=== PATIENT | male | born 1985 | race Caucasian/White ===

== ENCOUNTER → 2019-09-24 | Outpatient (CLI) | payer BC ==
--- NOTE | 2019-09-24 15:08 | MR ---
EXAMINATION TYPE: MR knee RT wo con DATE OF EXAM: 09/24/2019 COMPARISON: None HISTORY: Right Knee Pain, Swelling, Locking TECHNIQUE: Multiplanar, multisequence images of the knee is performed without IV contrast. FINDINGS: MEDIAL MENISCUS: Oblique tear posterior horn medial meniscus. Bucket-handle component is difficult to exclude. Anterior horn is intact. LATERAL MENISCUS: Anterior and posterior horns are intact without tear. CRUCIATE LIGAMENTS: The anterior and posterior cruciate ligaments are intact and unremarkable. COLLATERAL LIGAMENTS: The medial collateral ligament and lateral collateral ligament complex are inta ct and unremarkable. EXTENSOR MECHANISM: Visualized quadriceps and patellar tendons are intact. EFFUSION: No significant suprapatellar joint effusion. POPLITEAL CYST: No popliteal/dixon cyst. TRICOMPARTMENT SPACES: Intact CARTILAGE: Intact BONE MARROW SIGNAL: No focal abnormal marrow signal is appreciated. OTHER: No additional significant abnormality is appreciated. IMPRESSION: Oblique tear posterior horn medial meniscus. Bucket-handle component is difficult to excl ude.
== END | disposition home or self-care (01) ==
LOC: RADMRIMAIN 14:03
PROVIDERS: ATTEND Orthopaedic Surgery
DX: S83.241A Other tear of medial meniscus, current injury, right knee, initial encounter (principal)

== ENCOUNTER → 2019-10-05 | Outpatient (CLI) | payer BC ==
[2019-10-05 13:29] LABS: Basophils % (A) 1 %; Eosinophils # (A) 0.3 k/uL (0-0.7); Eosinophils % (A) 4 %; HCT 46.4 % (39.0-53.0); HGB 15.3 gm/dL (13.0-17.5); Lymphocytes # (A) 2.9 k/uL (1.0-4.8); Lymphocytes % (A) 39 %; MCH 31.2 pg (25.0-35.0); MCV 94.6 fL (80.0-100.0); Mean Platelet Volume 7.8; Monocytes # (A) 0.3 k/uL (0-1.0); Monocytes % (A) 4 %; Neutrophils # (A) 3.8 k/uL (1.3-7.7); Neutrophils % (A) 51 %; Platelet Count 224 k/uL (150-450); RDW 12.8 % (11.5-15.5); WBC 7.5 k/uL (3.8-10.6)
[2019-10-05 13:31] LABS: Potassium 4.2 mmol/L (3.5-5.1)
== END | disposition home or self-care (01) ==
LOC: LABPAT 12:35
PROVIDERS: ATTEND Orthopaedic Surgery
DX: Z01.818 Encounter for other preprocedural examination (principal); M23.91 Unspecified internal derangement of right knee
CPT/HCPCS: 80051; 85025

== ENCOUNTER → 2019-10-20 | Day surgery (SDC) | payer BC ==
[2019-10-18 11:55] VITALS: BMI 30.8
--- NOTE | 2019-10-19 16:40 | HP ---
HISTORY AND PHYSICAL DATE OF SURGERY: 10/20/2019 Guillermo Chan is a 34-year-old patient seen progressive right knee pain. We discussed options. He elected to proceed with arthroscopy. Consent was obtained. PAST MEDICAL HISTORY: Noncontributory. PAST SURGICAL HISTORY: Noncontributory. DAILY MEDICATIONS: Naprosyn. ALLERGIES: NONE. SOCIAL HISTORY: He smokes one pack of cigarettes daily. PHYSICAL EVALUATION OF THE RIGHT KNEE: His range of motion is negative 2/3 to 110. He has a mild to moderate effusion. Tenderness along medial joint line. Positive medial Amanda's. Plus one Lori. Good endpoint. Plus one MCL, good endpoint. Distal neurovascular exam is intact. RADIOGRAPHS: Radiographs of the right knee revealed mild osteoarthritis. Right knee MRI revealed medial meniscal tear. IMPRESSION: 1. Internal derangement of the right knee with medial meniscal tear. 2. Tobacco use. PLAN: Right knee arthroscopy with partial meniscectomy, partial synovectomy and debridement. MMODL / IJN: [id number] /
[~2019-10-20] MED LIST: BUPIVACAIN-EPI 0.25%-1:200,000 30 ML VIAL SQ ONE; DEXAMETHASONE SOD PHOSPHATE 10 MG/ML 1 ML VIAL IV ONE; HYDROcodone/APAP 5-325MG 1 EACH TAB ONE; HYDROcodone/APAP 5-325MG 1 EACH TAB PO ONE; HYDROcodone/APAP 7.5-325MG 1 EACH TAB ONE; LACTATED RINGERS 1,000 ML IV SCH; LIDOCAINE 1% (10MG/ML) FOR IV START INTRADERMA ONE; LIDOCAINE 1% INJ 10MG/ML (20 ML MDV) ONE; MIDAZOLAM 2 MG/2 ML VIAL ONE; ONDANSETRON 4 MG/2 ML VIAL IVP ONE; ONDANSETRON 4 MG/2 ML VIAL ONE; PROPOFOL 10 MG/ML 20 ML VIAL IV ONE; fentaNYL (PF) 50 MCG/ML 2 ML AMP ONE
[2019-10-20 08:56] VITALS: RESP 16
[2019-10-20] MEDS: HYDROmorphone 0.5 MG/0.5 ML SYRINGE IVP PRN ×4 (10:55→11:28)
--- NOTE | 2019-10-20 11:00 | P.OP ---
Date of Procedure: 10/20/19 Preoperative Diagnosis: Internal derangement right knee Postoperative Diagnosis: 1. Bucket handle tear medial meniscus right knee 2. Reactive synovitis medial, lateral and suprapatellar compartments right knee Procedure(s) Performed: 1. Arthroscopic partial medial meniscectomy right knee 2. Arthroscopic partial synovectomy medial, lateral and suprapatellar compartments right knee Anesthesia: LIZZETTEA, local Surgeon: Goyo Brown Estimated Blood Loss (ml): 7 Pathology: none sent Condition: stable Disposition: PACU Indications for Procedure: 34-year-old patient seen with progressive right knee pain. After treatment options were discussed, he elected to proceed with arthroscopy. Operative Findings: See description of procedure Description of Procedure: Patient was taken to the operative suite. Patient underwent a general anesthetic by the department of anesthesia. Patient was given preoperative antibiotics. The right lower extremity was placed in a well-padded arthroscopic leg coleman. The right leg was prepped and draped in the normal sterile orthopedic fashion. A lateral parapatellar and suprapatellar incision was made. Trochars were inserted. Arthroscopy was initiated. Suprapatellar pouch reveal ed diffuse thick reactive synovitis. The patellofemoral joint appeared to articulate congruently. There was no significant chondromalacia present. The scope was guided into the medial gutter. No loose bodies or plica were identified. The scope was then guided into the medial compartment. A medial parapatellar incision was made. Trocar inserted followed by probe. There was a white zone bucket-handle tear involving the medial meniscus. There was thick reactive synovitis anteriorly. There wasa chondral malacia. I now performed a partial medial meniscectomy getting down to stable meniscal tissue. I performed a partial synovectomy. The residual remnant meniscus was stable. There was good decompression of the synovitis. Scope and probe were then guided into the intercondylar notch. Cruciates were identified, probed and found to be stable. The scope and probe were then guided into lateral compartment. Lateral meniscus was probed and found to be stable. There was no chondromalacia. There was some reactive synovitis anteriorly. I performed a partial synovectomy. There was good decompression of the synovitis. The scope was in guided back into the suprapatellar compartment. I introduced a motorized shaver into the suprapatellar compartment. I debrided some piecemeal fragments of meniscus I encountered. I performed a partial synovectomy decompressing reactive syno vitis. The shaver was removed. There was good decompression of synovitis. I took one more look on the entire knee, no residual debris. Instruments were now removed from the joint. The joint was infiltrated with .25% Marcaine. The portal sites were repaired with nylon suture.. Sterile dressings were applied. The patient was placed into a NEVAEH hose. No tourniquet was utilized. The patient was awakened, transferred to a bed and taken to recovery stable satisfactory condition.
[2019-10-20 11:07] VITALS: TEMP 97
[2019-10-20 12:20] VITALS: BP 118/74; PULSE 89
== END | disposition home or self-care (01) ==
LOC: OR 08:32
PROVIDERS: ATTEND Orthopaedic Surgery
DX: M23.331 Other meniscus derangements, other medial meniscus, right knee (principal); M65.861 Other synovitis and tenosynovitis, right lower leg; F17.210 Nicotine dependence, cigarettes, uncomplicated; K08.409 Partial loss of teeth, unspecified cause, unspecified class; Z79.1 Long term (current) use of non-steroidal anti-inflammatories (NSAID); Z97.2 Presence of dental prosthetic device (complete) (partial)
CPT/HCPCS: 29881; 29876; J2250; J1100; J0690; J2405; J2001; J3010; J2704; J1170

== ENCOUNTER → 2022-07-24 | Outpatient (CLI) | payer OTHER ==
--- NOTE | 2022-07-25 09:26 | MR ---
EXAMINATION TYPE: MR knee LT wo con DATE OF EXAM: 07/24/2022 COMPARISON: Outside left knee x-ray 8 days ago HISTORY: Pain Lt knee- medial and under patella. Locking and swelling. History of injury. TECHNIQUE: Multiplanar, multisequence images of the knee is performed without IV contrast. FINDINGS: MEDIAL MENISCUS: Oblique signal posterior horn extends to articular surface sagittal image 27. LATERAL MENISCUS: Anterior and posterior horns are intact without tear. CRUCIATE LIGAMENTS: The anterior and posterior cruciate ligaments are intact and unremarkable. COLLATERAL LIGAMENTS: The medial collateral ligament and lateral collateral ligament complex are inta ct and unremarkable. EXTENSOR MECHANISM: Visualized quadriceps and patellar tendons are intact. EFFUSION: Moderate size suprapatellar joint effusion. POPLITEAL CYST: No popliteal/dixon cyst. TRICOMPARTMENT SPACES: Tricompartmental joint spaces are preserved. No significant spurring is seen. CARTILAGE: Tricompartment articular cartilage is maintained. BONE MARROW SIGNAL: No focal abnormal marrow signal is appreciated. OTHER: No additional significant abnormality is appreciated. IMPRESSION: 1. Oblique full-thickness tear posterior horn medial meniscus extending into central body. 2. Moderate-sized suprapatellar joint effusion.
== END | disposition home or self-care (01) ==
LOC: RADMRIMAIN 19:18
PROVIDERS: ATTEND Orthopaedic Surgery
DX: S83.242A Other tear of medial meniscus, current injury, left knee, initial encounter (principal); M25.462 Effusion, left knee

== ENCOUNTER → 2022-09-06 | Outpatient (CLI) | payer OTHER ==
[2022-09-06 21:43] LABS: Basophils # (A) 0.07 X 10*3/uL (0.00-0.10); Basophils % (A) 0.8 %; Eosinophils # (A) 0.17 X 10*3/uL (0.04-0.35); Eosinophils % (A) 1.9 %; HCT 51.1 % (39.6-50.0); HGB 16.9 d/dL (12.0-15.0); Lymphocytes # (A) 2.67 X 10*3/uL (0.90-5.00); Lymphocytes % (A) 30.5 %; MCH 31.3 pg (27.0-32.0); MCHC 33.1 d/dL (32.0-37.0); MCV 94.6 FL (80.0-97.0); Mean Platelet Volume 10.1 FL (9.5-12.2); Monocytes # (A) 0.46 X 10*3/uL (0.20-1.00); Monocytes % (A) 5.3 %; NRBC Per 100 WBC 0 X 10*3/uL (0.00-0.01); Neutrophils # (A) 5.37 X 10*3/uL (1.80-7.70); Neutrophils % (A) 61.3 %; Platelet Count 254 X 10*3/uL (140-440); RDW 13.1 % (11.5-14.5); WBC 8.76 X 10*3/uL (4.50-10.00)
[2022-09-07 02:36] LABS: Anion Gap 10.7 mmol/L (4.00-12.00); Carbon Dioxide 24.3 mmol/L (21.6-31.8); Potassium 4.2 mmol/L (3.5-5.5)
== END | disposition home or self-care (01) ==
LOC: LABPAT 11:07
PROVIDERS: ATTEND Orthopaedic Surgery
DX: M23.92 Unspecified internal derangement of left knee (principal)
CPT/HCPCS: 80051; 85025; 93005

== ENCOUNTER 2022-09-08 19:25 | Outpatient (CLI) | payer OTHER ==
[2022-09-09 18:36] LABS: Urine Alcohol Negative (Negative); Urine Barbiturate Negative (Negative); Urine Cocaine Negative (Negative); Urine Methadone Negative (Negative); Urine Opiates Negative (Negative); Urine Phencyclidine Negative (Negative)
--- NOTE | 2022-09-24 16:13 | P.PCN ---
Date of Procedure: 09/08/22 Operative Findings: Polysomnography report Date of service is 09/08/2022 Pertinent history 35-year-old male patient with symptoms of chronic sleepiness and hypersomnia -patient has loud snoring, witnessed apneas as reported by the and episodes of gasping for air in the middle of the night during sleep. -Fragmentation of the sleep -Excessive hypersomnia with an [place] score of 16 -Limited weight gain over the years in order of 20 pounds - Crowding of the posterior pharynx with a Mallampati class 3-4 Technical description The patient was studied using a standard complex polysomnography protocol that included recording of the 2 EKG, Central, occipital and frontal EEG, right and left outer canthus EOG, submental EMG, right and left anterior tibialis EMG, respiratory airflow by thermocouple and or pressure/flow transducer, respiratory efforts by abdominal and thoracic PVDF belts, oxygen saturation by cable oximetry. Position by observation synchronized the PSG. 4 children 12 and nontender and select patients, ETCO2 may be added to the recording. Equipment us ed: [email or web address]. Sleep architecture The study began at 2155 and ended at 534. Total recording duration was 4 and 58.5 minutes. The total time to sleep was 281.5 minutes. The wake time after sleep onset was 24 minutes. The overall sleep efficiency was Related to be at 83.2%. The patient's sleep latency was 51 minutes. There was a total of 21% REM sleep with a REM latency of 184 minutes. There was 3.3% stage I sleep, 73.0% stage II sleep, 2.6% stage III sleep and the total arousal index was 8.7. Sleep continuity The patient had total of 55 arousals with arousal index of 8.7 Respiratory summary during the current sleep study, the patient had a total of 4 obstructive apneas, 7 obstructive hypopneas and the resulting apnea hypopneas index was 1.7. Oxygenation analysis The patient had no major nocturnal oxygen saturation and the patient was able to maintain a pulse ox above 90% on sleep study Cardiac summary The average heart rate was 56, minimum heart rate was 51 and a maximum heart is a 63 and the rhythm was sinus Periodic limb movements activity The patient had a total of 15. The motor activity with an index of 2.4. There was only 7 periodic limb movements activity with arousal and index of 1.1 Assessment Primary snoring, no evidence of any sleep breathing disorder. The apnea hypopneas was measured to be at 1.7 Chronic hypersomnia with an [place] score of 16 Plan This is a negative study. The patient had adequate sleep efficiency. Adequate sleep architecture. No early REM sleep. The overall apnea hypoxia index was 1.7. Proceed with secondary MSLT. MSLT report Electrographic variables measured during MSLT included EEG, EMG, EOG and EKG. The patient was monitored throughout 4/5 20 minute naps/unfortunately is to follow sleep at 2 hour intervals. For each nap, the patient was allowed 20 minutes to fall asleep. Once asleep, the patient is awake and after 15 minutes. Between naps, the patient was Alert as much as possible. The sleep latency of 20 minutes indicates that no sleep occurred. Results The patient was given a total of 5 naps. Patient complains of knee pain and he left AMA before the fifth nap. The sleep latency for nap #1 was 4 minutes, nap #2 was 6 minutes, nap #3 was 13 minutes and nap #4 was 20 minutes. The mean sleep latency or 4 naps was 10.7 minutes. There was no REM episodes or REM onset sleep during these naps. Assessment Chronic hypersomnia, likely related to insufficient sleep. Possibility of primary hepatic hypersomnia cannot be completely ruled out. No evidence of any narcolepsy. No evidence of any REM onset sleep. Plan We will ask the patient to extend his sleeping hours and average of 8-9 hours per night if possible. Maintain regular sleep schedule implement good sleep hygiene measures We'll consider treating this patient with Provigil as the patient is reporting excessive sleepiness and is affecting his functionality. Anticipate improvement in his chronic hypersomnia with above-mentioned measures. Will ask patient to follow-up in the office We'll continue to follow
== END 2022-09-09 23:59 ==
LOC: 3 N SLEEP 19:25 → EDSTATUS 19:30 → 3 N SLEEP 09-09 14:30
PROVIDERS: ATTEND Internal Medicine Critical Care Medicine
DX: G47.10 Hypersomnia, unspecified (principal)
CPT/HCPCS: 80306; 95805; 95810

== ENCOUNTER 2022-10-03 12:18 | Day surgery (SDC) | payer OTHER ==
--- NOTE | 2022-10-03 07:51 | HP ---
HISTORY AND PHYSICAL DATE OF SURGERY: 10/03/2022. HISTORY OF PRESENT ILLNESS: Lucho Chan is a 37-year-old gentleman, seen with progressive left knee pain. We discussed options. He elected to proceed with left knee arthroscopy. Consent was obtained. PAST MEDICAL HISTORY: Noncontributory. PAST SURGICAL HISTORY: Noncontributory. DAILY MEDICATIONS: None. ALLERGIES: None reported. SOCIAL HISTORY: Smokes 1 pack of cigarettes daily. PHYSICAL EVALUATION OF THE LEFT KNEE: His range of motion is -3/4 to 95 degrees. Mild effusion. Tenderness along the medial joint line. Positive medial Amanda's. Ligaments are stable. Hip rotation is without pain. Distal neurovascular exam is intact. IMAGING STUDIES: Left knee radiographs revealed mild osteoarthritis. Left knee MRI revealed medial meniscal tear and moderate intra-articular effusion. IMPRESSION: Internal derangement of left knee with medial meniscal tear. PLAN: Left knee arthroscopy with partial medial meniscectomy and debridement. MMODL / IJN: [id number] /
[~2022-10-03 12:18] MED LIST changes: -BUPIVACAIN-EPI 0.25%-1:200,000 30 ML VIAL SQ ONE; -DEXAMETHASONE SOD PHOSPHATE 10 MG/ML 1 ML VIAL IV ONE; +DEXAMETHASONE SOD PHOSPHATE 4 MG/ML 1 ML VIAL IV ONE; -HYDROcodone/APAP 5-325MG 1 EACH TAB ONE; -HYDROcodone/APAP 5-325MG 1 EACH TAB PO ONE; -HYDROcodone/APAP 7.5-325MG 1 EACH TAB ONE; +HYDROmorphone 0.5 MG/0.5 ML SYRINGE IVP PRN; -LIDOCAINE 1% (10MG/ML) FOR IV START INTRADERMA ONE; +LIDOCAINE 1% (10MG/ML) FOR IV START INTRADERMA PRN; -LIDOCAINE 1% INJ 10MG/ML (20 ML MDV) ONE; -MIDAZOLAM 2 MG/2 ML VIAL ONE; -ONDANSETRON 4 MG/2 ML VIAL ONE; -PROPOFOL 10 MG/ML 20 ML VIAL IV ONE; +droPERidol 5 MG/2 ML VIAL IVP ONE; -fentaNYL (PF) 50 MCG/ML 2 ML AMP ONE
[2022-10-03] MEDS ORDERED: LACTATED RINGERS 1,000 ML IV ONE (13:01)
[2022-10-03] MEDS ORDERED: KETAMINE 10 MG/ML 20 ML VIAL ONE (14:22)
[2022-10-03] MEDS ORDERED: KETOROLAC 15 MG/ML 1 ML VIAL ONE (14:22)
[2022-10-03] MEDS ORDERED: MIDAZOLAM 2 MG/2 ML VIAL ONE (14:22)
[2022-10-03] MEDS ORDERED: LIDOCAINE 2% INJ 20 MG/ML (2 ML VIAL) ONE (14:22)
[2022-10-03] MEDS ORDERED: fentaNYL (PF) 50 MCG/ML 2 ML AMP ONE (14:22)
[2022-10-03] MEDS ORDERED: PROPOFOL 10 MG/ML 20 ML VIAL IV ONE (14:22)
[2022-10-03] MEDS ORDERED: BUPIVACAINE (PF) 0.25% 30 ML VIAL SQ ONE (14:42)
[2022-10-03 15:11] VITALS: TEMP 97.2
--- NOTE | 2022-10-03 15:13 | P.OP ---
Date of Procedure: 10/03/22 Preoperative Diagnosis: Internal derangement left knee Postoperative Diagnosis: 1. Tear medial meniscus left knee 2. Reactive synovitis medial, lateral and suprapatellar compartments left knee Procedure(s) Performed: 1. Arthroscopic partial medial meniscectomy left knee 2. Arthroscopic partial synovectomy medial, lateral and suprapatellar compartments left knee Anesthesia: JUVENAL, local Surgeon: Goyo Brown Estimated Blood Loss (ml): 5 Pathology: none sent Condition: stable Disposition: PACU Indications for Procedure: 37-year-old patient seen with progressive left knee pain. After having treatment options discussed, she elected to proceed with arthroscopy. Operative Findings: See description of procedure Description of Procedure: Patient was taken to the operative suite. Patient underwent a general anesthet ic by the department of anesthesia. Patient was given preoperative antibiotics. The left lower extremity was placed in a well-padded arthroscopic leg coleman. The left leg was prepped and draped in the normal sterile orthopedic fashion. A lateral parapatellar and suprapatellar incision was made. Trochars were inserted. Arthroscopy was initiated. Suprapatellar pouch revealed diffuse thick reactive synovitis. The patellofemoral joint appeared to articulate congruently. There was very mild grade 1 chondromalacia. The scope was guided into the medial gutter. No loose bodies or plica were identified. The scope was then guided into the medial compartment. A medial parapatellar incision was made. Trocar inserted followed by probe. There was a complex tear posterior horn medial meniscus. There was some thick reactive synovitis anteriorly. There was no sign chondromalacia present. I performed a partial medial meniscectomy getting down to stable meniscal tissue. I performed a partial synovectomy decompressing the thick reactive synovitis. The residual meniscus was probed and was found to be stable. There was good decompression of synovitis. Scope and probe were then guided into the intercondylar notch. Cruciates were identified, probed and found to be stable. The scope and probe were then guided into lateral compartment. Lateral meniscus was probed and was found to be stable. There was no chondromalacia present. There was some thick reactive synovitis anteriorly. I introduced a motorized shaver and performed a partial synovectomy. Shaver was removed. There was good decompression of synovitis. The scope was in guided back into the suprapatellar compartment. I introduced a motorized shaver into the suprapatellar compartment. I debrided some piecemeal fragments of meniscus I encountered. I performed a partial synovectomy. Shaver was removed. There was good decompression of the synovitis. I now took one more look on the entire knee, no residual debris. Instruments were now removed from the joint. The joint was infiltrated with .25% Marcaine. Steri-Strips were applied to the portal sites. Sterile dressings were applied. The patient was placed into a NEVAEH hose. No tourniquet was utilized. The patient was awakened, transferred to a bed and taken to recovery stable satisfactory condition.
[2022-10-03 15:53] VITALS: RESP 20
[2022-10-03] MEDS ORDERED: HYDROcodone/APAP 5-325MG 1 EACH TAB PO ONE (15:54)
[2022-10-03] MEDS ORDERED: HYDROcodone/APAP 5-325MG 1 EACH TAB ONE (15:56)
[2022-10-03 16:20] VITALS: BP 126/88; PULSE 66
== END 2022-10-03 16:45 | disposition home or self-care (01) ==
LOC: OR 12:18
PROVIDERS: ATTEND Orthopaedic Surgery
DX: S83.242A Other tear of medial meniscus, current injury, left knee, initial encounter (principal); M65.862 Other synovitis and tenosynovitis, left lower leg; F17.210 Nicotine dependence, cigarettes, uncomplicated; M17.12 Unilateral primary osteoarthritis, left knee; X58.XXXA Exposure to other specified factors, initial encounter
CPT/HCPCS: 29881; J2250; J1100; J0690; J2405; J3010; J1885; J2704; J2001

== ENCOUNTER → 2023-06-24 | Outpatient (CLI) | payer OTHER | END | disposition home or self-care (01) | LOC: RADUSWWP 07:29 | PROVIDERS: ATTEND Family Medicine | DX: Z53.9 Procedure and treatment not carried out, unspecified reason (principal) ==